=== PATIENT | male | born 1995 | race Caucasian/White ===

== ENCOUNTER 2017-03-01 17:16 | Emergency (ER) | payer OTHER ==
[~2017-03-01] VITALS: Ht 172.7 cm; Wt 74.8 kg
--- NOTE | 2017-03-01 18:35 | NUR ---
PT IS IN ROOM #2A. DR MARTIN EVALUATED THE PT.
[2017-03-01] MEDS ORDERED: IV NORMAL SALINE 1000 ML BAG IV ONE (20:00)
[2017-03-01] MEDS ORDERED: KETOROLAC TROMETHAMINE 15 MG INJ IV ONE (20:00)
[2017-03-01 20:06] LABS: BASOPHILS % (AUTO) 0.3 % (0.0-2.0); EOSINOPHILS # (AUTO) 0.1 K/uL (0.0-0.7); EOSINOPHILS % (AUTO) 2.7 % (0.0-7.0); HEMATOCRIT 45.3 % (36.7-47.1); HEMOGLOBIN 15.8 g/dL (12.5-16.3); LYMPHOCYTES # (AUTO) 1.6 K/uL (20.0-40.0); LYMPHOCYTES % (AUTO) 36.2 % (20.5-74.5); MEAN CORPUSCULAR HEMOGLOBIN 27.5 uug (23.8-33.4); MEAN CORPUSCULAR HGB CONC 35 g/dL (32.5-36.3); MEAN CORPUSCULAR VOLUME 79.1 fL (73.0-96.2); MONOCYTES # (AUTO) 0.4 K/uL (2.0-10.0); MONOCYTES % (AUTO) 9.2 % (0-11); NEUTROPHILS # (AUTO) 2.3 K/uL (1.8-8.9); NEUTROPHILS % (AUTO) 51.6 % (31.5-64.5); PLATELET COUNT (AUTO) 138 K/uL (152-348); RED BLOOD CELL COUNT(AUTO) 5.73 MIL/uL (4.06-5.63); WHITE BLOOD COUNT (AUTO) 4.4 K/uL (3.6-10.2)
[2017-03-01] MEDS ORDERED: KETOROLAC TROMETHAMINE 15 MG INJ ONE (20:16)
[2017-03-01 20:21] LABS: POTASSIUM 3.5 mmol/L (3.5-5.1)
[2017-03-01 20:26] LABS: BILIRUBIN,DIRECT 0.2 mg/dL (0.0-0.2); BILIRUBIN,TOTAL 1.1 mg/dL (0.2-1.0); TOTAL PROTEIN, SERUM 7.3 g/dL (6.4-8.2)
[2017-03-01] MEDS ORDERED: NORMAL SALINE FLUSH 10 ML DISP.SYRIN ONE (20:56)
[2017-03-01] MEDS ORDERED: IOHEXOL 350 100 ML INFUS..BTL ONE (20:57)
[2017-03-01] MEDS ORDERED: IV NORMAL SALINE 250 ML IV ONE (20:57)
[2017-03-01 20:58] LABS: *BILIRUBIN,URIN NEGATIVE (NEGATIVE); *BLOOD, URINE 1+ (NEGATIVE); *CLARITY,URINE CLEAR (CLEAR); *COLOR,URINE YELLOW (YELLOW); *KETONES,URINE NEGATIVE (NEGATIVE); *PROTEIN,URINE NEGATIVE (NEGATIVE); *UROBILINOGEN,URINE 0.2 E.U./dl (NORMAL); LEUKOCYTE ESTERASE ,URINE NEGATIVE (NEGATIVE); NITRITE, URINE NEGATIVE (NEGATIVE); UGLUCOSE NEGATIVE (NEGATIVE)
[2017-03-01 21:04] LABS: BACTERIA,URINE NONE SEEN /HPF (NONE SEEN); SQUAMOUS EPITHELIAL CELL,UR NONE SEEN /HPF (NONE SEEN); WBC,URINE 0-3 /HPF (0-3)
--- NOTE | 2017-03-01 22:20 | NUR ---
patient in room with 2/10 pain. No distress noted
[2017-03-01 23:11] VITALS: BP 128/75
== END 2017-03-01 23:12 | disposition home or self-care (01) ==
LOC: ER 17:16
DX: R10.12 Left upper quadrant pain (principal); R16.2 Hepatomegaly with splenomegaly, not elsewhere classified; N62 Hypertrophy of breast; F17.200 Nicotine dependence, unspecified, uncomplicated
CPT/HCPCS: 36415; 70030-TC; 71010; 83690; 85025; 85730; 93005; A4663; J1885; J3490; J7030; J7050; Q9967

== ENCOUNTER 2017-03-03 09:39 | Emergency (ER) | payer OTHER ==
[~2017-03-03] VITALS: Ht 172.7 cm; Wt 70.3 kg
[2017-03-03] MEDS ORDERED: KETOROLAC TROMETHAMINE 60 MG INJ IM ONE ×2 (10:15→10:25)
--- NOTE | 2017-03-03 11:13 | NUR ---
Patient discharged to home in stable conditon. Written and verbal after care instructions given. Patient verbalizes understanding of instructions.pt walks in steady gait. pain down to tolerable level.
== END 2017-03-03 11:17 | disposition home or self-care (01) ==
LOC: ER 09:39
DX: R10.12 Left upper quadrant pain (principal); F17.200 Nicotine dependence, unspecified, uncomplicated
CPT/HCPCS: 71101; A4663; J1885; J7030